=== PATIENT | female | born 2000 | race Hispanic/Latino ===

== ENCOUNTER 2024-09-04 08:54 | Emergency (ER) | payer SELFPAY ==
--- NOTE | ~2024-09-04 | US_ITS ---
EXAMINATION: US OB <= 14 weeks fetus DATE: 09/04/2024 11:31 INDICATION: Abdominal pain and vaginal spotting during first trimester TECHNIQUE: Real-time pelvic ultrasound utilizing both a transvaginal and transabdominal probe was pe rformed. The interpreting radiologist was not present for the study. COMPARISON: None. FINDINGS: The uterus measures 8.6 x 5.5 x 4.9 cm. There is an intrauterine gestational sac. A yolk sac and fet al pole are identified. The crown rump length measures 4 mm, which correlates with an estimated gesta tional age of 6 weeks and 1 days. heart motion is identified measuring 116 beats per minute (bp m) by M-mode Doppler. Small crescentic anechoic subchorionic hematoma extending 3.3 x 3.3 cm in lengt h along the periphery of the gestational sac measuring up to 6 mm in maximal thickness. The right ovary measures 2.2 x 2.1 x 2.1 cm. The left ovary measures 1.9 x 1.4 x 1.0 cm. After flow i dentified in both ovaries on color Doppler. There is no free fluid in the pelvis. IMPRESSION: 1. Single living fetus with heart rate of 116 bpm. 2. Gestational age by ultrasound of 6 weeks 1 day(s) +/- 4 day(s) with ultrasound estimated date of delivery (JACK) of 04/29/2025. Line 3. Small subchorionic hematoma. Reviewed, dictated and finalized at location B. IMPRESSION: 1. Single living fetus with heart rate of 116 bpm. 2. Gestational age by ultrasound of 6 weeks 1 day(s) +/- 4 day(s) with ultraso und estimated date of delivery (JACK) of 04/29/2025. Line 3. Small subchorionic hematoma.
[2024-09-04 09:11] VITALS: BP 140/80; PULSE 70; RESP 20; TEMP 37.1; O2SAT 100
--- NOTE | 2024-09-04 10:23 | ED_ITS ---
HPI - General Chief complaint: Vaginal Bleeding Stated complaint: vag bleed, preg Time Seen by Provider: 09/04/24 09:05 History of Present Illness HPI Narrative: Patient is a 23-year-old female who presents to the ER with concerns vaginal bleeding and abdominal pain well be 6 weeks . She reports she went to an OBGYN last week where they confirmed her but did not do an ultrasound. Patient reports for the past few days she has noticed blood on toilet paper when she wipes. She endorses abdominal pain near her umbilicus and along her right pelvis. Patient denies any recent fevers, constipation, or back pain. Related Data Allergies Allergy/AdvReac Type Severity Reaction Status Date / Time No Known Allergies Allergy Verified 09/04/24 09:19 Review of Systems 2 Review of Systems: All systems reviewed & are unremarkable except as noted in HPI and below Exam 2 Narrative: GENERAL: Well appearing, well-nourished, non-toxic, in no acute distress. HEAD: Normocephalic, atraumatic. NECK: Supple. No adenopathy, no masses. RESPIRATORY: Airway patent, respirations nonlabored. Clear to auscultation bilaterally, no rales, rhonchi, wheezing. CARDIOVASCULAR: Regular rate and rhythm without murmurs, rubs, or gallops. Peripheral pulses 2+ and equal bilaterally. ABDOMINAL: Soft, nontender, nondistended, no hepatosplenomegaly. Normoactive BS. MUSCULOSKELETAL: Moves all extremities. Strength/ROM intact without gross deformities. SKIN: Warm, dry, normal color. No rashes. NEURO: A&O X3. Speech clear. Cranial nerves II-XII intact. No ataxic movements. PSYCHIATRIC: Appropriate mood and affect. Normal interaction. Course Vital Signs Vital signs: Vital Signs Temperature 37.1 C 09/04/24 09:11 Pulse Rate 70 09/04/24 09:11 Respiratory Rate 20 09/04/24 09:11 Blood Pressure 140/80 09/04/24 09:11 Pulse Oximetry 100 09/04/24 09:11 Oxygen Delivery Room Air 09/04/24 09:11 Temperature 37.1 C 09/04/24 09:11 Pulse Rate 70 09/04/24 09:11 Respiratory Rate 20 09/04/24 09:11 Blood Pressure 140/80 09/04/24 09:11 Pulse Oximetry 100 09/04/24 09:11 Oxygen Delivery Room Air 09/04/24 09:11 MDM - OB/Uterine Contractions MDM Narrative Medical decision making narrative: Patient is a 23-year-old female who presents to the ER with concerns vaginal bleeding and abdominal pain well be 6 weeks . She reports she went to an OBGYN last week where they confirmed her but did not do an ultrasound. Patient reports for the past few days she has noticed blood on toilet paper when she wipes. She endorses abdominal pain near her umbilicus and along her right pelvis. Patient denies any recent fevers, constipation, or back pain. Labs Ordered: CBC, CMP, UA, hCG quant Imaging Ordered: Ultrasound OB less than 14 weeks Medications Ordered: 1 L normal saline IV bolus, Macrobid P.O. Results: Patient's ultrasound indicates 1. Single living fetus with heart rate of 116 bpm. 2. Gestational age by ultrasound of 6 weeks 1 day(s) +/- 4 day(s) with ultrasound estimated date of delivery (JACK) of 04/29/2025. Line 3. Small subchorionic hematoma. Her urinalysis indicates that she has a urinary tract infection. Diagnosis: Live , urinary tract infection Consults: OBGYN (outpatient-[facility]), already established. Patient Education/Shared MDM: Results shared with patient. She is strongly advised to maintain hydration status upon discharge and follow-up with her OBGYN as planned. She will be discharged home with a prescription for Macrobid. Strict return precautions provided. Patient verbalized understanding is in agreement with plan. Vital signs stable at time of discharge. All questions answered. Differential Diagnosis Differential diagnosis: Likely other (Threatened , intrauterine , ectopic , vaginal bleeding during , urinary tract infection) Lab Data Attestation: I reviewed the patient's lab results. 09/04/24 11:44 09/04/24 11:44 Labs: Lab Results 09/04/24 Range/Units 11:44 WBC 8.5 (4.5-10.0) K/mm3 RBC 4.58 (4.2-5.4) M/mm3 Hgb 14.4 (12.0-15.0) g/dL Hct 42.2 (37.0-47.0) % MCV 92.1 (80-100) fl MCH 31.4 (26-34) pg MCHC 34.1 (32-36) g/dl RDW 12.4 (11.5-14.5) % Plt Count 403 H (150-375) k/mm3 MPV 8.9 (7.4-10.4) fl Immature Gran % (Auto) 0.4 (0-0.5) % Neut % (Auto) 58.3 (45.5-73.1) % Lymph % (Auto) 36.1 (18.3-44.2) % [place] % (Auto) 3.9 (2.6-8.5) % Eos % (Auto) 0.7 (0-4.4) % Baso % (Auto) 0.6 (0.2-1.2) % Lymph # (Auto) 3.07 (0.9-3.2) K/mm3 [place] # (Auto) 0.3 (0.1-0.6) K/mm3 Eos # (Auto) 0.1 (0-0.3) K/mm3 Baso # (Auto) 0.1 (0.0-0.1) K/mm3 Abs Immat Gran (auto) 0.03 (0.00-0.031) K/mm3 Absolute Neuts (auto) 5.0 (1.3-6.7) K/mm3 Absolute Nucleated RBC 0.000 (0.0-0.012) K/mm3 Nucleated RBC % 0.0 (0.0-0.2) % PT 13.2 (11.1-14.7) Seconds INR 1.0 APTT 31.0 (22.3-36.8) Seconds Sodium 139 (137-145) mmol/L Potassium 4.1 (3.4-5.0) mmol/L Chloride 105 (98-107) mmol/L Carbon Dioxide 22 (22-30) mmol/L Anion Gap 12 (4-12) mmol/L BUN 5 L (7-17) mg/dL Creatinine 0.42 L (0.7-1.0) mg/dL Estim Creat Clear Calc 180 ml/min Estimated GFR > 60 (59 - ) Glucose 87 (65-110) mg/dL Calcium 9.2 (8.4-10.2) mg/dL Total Bilirubin 0.4 (0.2-1.3) mg/dL AST 26 (14-36) U/L ALT 26 (6-35) U/L Alkaline Phosphatase 72 (38-126) U/L Total Protein 8.0 (6.3-8.2) g/dL Albumin 4.6 (3.5-5.1) g/dL Beta HCG, Quant 72293.00 mIU/ML Urine Color Yellow (Yellow) Urine Appearance Cloudy H (Clear) Urine pH 7.0 (5.0-9.0) Ur Specific [place] 1.021 (1.001-1.035) Urine Protein Trace (Negative) mg/dL Urine Glucose (UA) Negative (Negative) mg/dL Urine Ketones Negative (Negative) mg/dL Ur Blood (Man) 2+ H (Negative) Urine Nitrate Negative (Negative) Urine Bilirubin Negative (Negative) Urine Urobilinogen 0.2 (<2.0) mg/dL Leukocyte Esterase Rfl 3+ H (Negative) GUTIERREZ/UL Urine RBC 6-10 H (0-2) /hpf Urine WBC 51-100 H (0-3) /hpf Ur Squamous Epith Cells Many H (Few) /hpf Urine Bacteria 3+ H /hpf Urine Casts 0-2 Blood Type O Positive Antibody Screen Negative Screen Not Reportable Baby's Blood Type Not Reportable Baby's MARSHA Not Reportable Doses of RhIg Required 0 Imaging Data Attestation: I personally reviewed and interpreted this imaging study as follows: Radiologist's impression: Impressions Ultrasound 09/04/24 11:32 IMPRESSION: 1. Single living fetus with heart rate of 116 bpm. 2. Gestational age by ultrasound of 6 weeks 1 day(s) +/- 4 day(s) with ultrasound estimated date of delivery (JACK) of 04/29/2025. Line 3. Small subchorionic hematoma. Discharge Plan Discharge Clinical Impression: Threatened , Urinary tract infection, Vaginal bleeding, Subchorionic hematoma in first trimester Patient Disposition: Home, Self-Care Condition: Stable Instructions: Antibiotic Form, (ED), Urinary Tract Infection in (ED) Additional Instructions: Please return to the ER with any worsening symptoms. Follow-up with your OBGYN as planned. Take all medications as prescribed, including your vitamins. Patient Language: Slovak Prescriptions: New nitrofurantoin monohyd/m-cryst [Macrobid] 100 mg capsule 100 mg PO Q12H 5 Days Qty: 10 0RF Rx Instructions: must administer with a meal/food Follow-up/Referrals: UNKNOWN,DOCTOR [Primary Care Provider] - Stand Alone Forms: Work/School Release IP Time of Disposition: 14:24
[2024-09-04] MEDS: SODIUM CHLORIDE 0.9% IV 1,000 ML 999 ML IV CONT (11:44)
[2024-09-04 11:51] LABS: Basophils Absolute Auto 0.1 K/mm3 (0.0-0.1); Basophils Percent Auto 0.6 % (0.2-1.2); Eosinophils Absolute Auto 0.1 K/mm3 (0-0.3); Eosinophils Percent Auto 0.7 % (0-4.4); Hematocrit 42.2 % (37.0-47.0); Hemoglobin 14.4 g/dL (12.0-15.0); Immature Granulocyte Absolute 0.03 K/mm3 (0.00-0.031); Immature Granulocyte Percent A 0.4 % (0-0.5); Lymphocytes Absolute Auto 3.07 K/mm3 (0.9-3.2); Lymphocytes Percent Auto 36.1 % (18.3-44.2); Mean Corpuscular HGB Conc 34.1 g/dl (32-36); Mean Corpuscular Hemoglobin 31.4 pg (26-34); Mean Corpuscular Volume 92.1 fl (80-100); Mean Platelet Volume 8.9 fl (7.4-10.4); Monocytes Absolute Auto 0.3 K/mm3 (0.1-0.6); Monocytes Percent Auto 3.9 % (2.6-8.5); Neutrophils Percent Auto 58.3 % (45.5-73.1); Platelet Count Result 403 k/mm3 (150-375); Red Blood Count 4.58 M/mm3 (4.2-5.4); Red Cell Distribution Width 12.4 % (11.5-14.5); White Blood Count 8.5 K/mm3 (4.5-10.0)
[2024-09-04 11:55] LABS: Add Urine Microscopic? YES; Appearance Urine Cloudy (Clear); Bacteria Urine 3+ /hpf; Bilirubin Urine Negative (Negative); Blood Urine 2+ (Negative); Color Urine Yellow (Yellow); Glucose Urine UA Negative (Negative); Ketones Urine Negative (Negative); Leukocyte Esterase Ur 3+ LEU/UL (Negative); Nitrate Urine Negative (Negative); Non Pathogenic Casts 0-2; Protein Urine Trace mg/dL (Negative); Specific Grav Ur 1.021 (1.001-1.035); Squamous Epithelial Cell Urine Many /hpf (Few); Urobilinogen Urine 0.2 mg/dL (<2.0); WBC Urine 51-100 /hpf (0-3)
[2024-09-04 12:11] LABS: Prothrombin Time 13.2 Seconds (11.1-14.7)
[2024-09-04 12:14] LABS: Alanine Aminotransferase 26 U/L (6-35); Albumin Level 4.6 g/dL (3.5-5.1); Alkaline Phosphatase 72 U/L (38-126); Anion Gap 12 mmol/L (4-12); Aspartate Amino Transferase 26 U/L (14-36); Bilirubin,Total 0.4 mg/dL (0.2-1.3); Blood Urea Nitrogen 5 mg/dL (7-17); Calcium 9.2 mg/dL (8.4-10.2); Carbon Dioxide 22 mmol/L (22-30); Chloride 105 mmol/L (98-107); Estimated CRCL calculation 180 ml/min; Estimated Glomerular Filt Rate > 60; Glucose 87 mg/dL (65-110); Potassium 4.1 mmol/L (3.4-5.0); Sodium 139 mmol/L (137-145)
[2024-09-04] MEDS: NITROFURANTOIN MONOHYD MACROCR 100 MG CAP PO (13:00)
[2024-09-04 14:39] VITALS: BP 123/78; PULSE 74; RESP 18; O2SAT 100
== END 2024-09-04 14:41 | disposition home or self-care (01) ==
PROVIDERS: Emergency Provider Registered Nurse
DX: O20.0 Threatened abortion (principal); O23.41 Unspecified infection of urinary tract in pregnancy, first trimester; N39.0 Urinary tract infection, site not specified; Z3A.01 Less than 8 weeks gestation of pregnancy
CPT/HCPCS: 36415; 76801; 80053; 81001; 84702; 85025; 85461; 85610; 85730; 86850; 86900; 86901; 96360; 99284; A9270; J7030

== ENCOUNTER 2024-09-19 19:17 | Emergency (ER) | payer SELFPAY ==
[2024-09-19 19:31] VITALS: BP 133/82; PULSE 110; RESP 20; TEMP 37.1; O2SAT 99
--- NOTE | 2024-09-19 20:34 | ED_ITS ---
HPI - Nausea/Vomiting/Diarrhea General Chief complaint: Nausea/Vomiting/Diarrhea <Izabela Logan MD - Last Filed: 09/19/24 22:02> Stated complaint: Bleeding- <Izabela Logan MD - Last Filed: 09/19/24 22:02> Time Seen by Provider: 09/19/24 20:01 <Izabela Logan MD - Last Filed: 09/19/24 22:02> History of Present Illness HPI Narrative: Patient is about 8 weeks , confirmed on ultrasound, over last few days she has noticed that especially after she eats, she will have nausea, vomiting, right-sided abdominal pain. This comes and goes. Also having some chills and fevers. No dysuria. <Izabela Logan MD - Last Filed: 09/19/24 22:02> Related Data Allergies/Adverse reactions: Allergies Allergy/AdvReac Type Severity Reaction Status Date / Time No Known Allergies Allergy Verified 09/19/24 19:18 <Izabela Logan MD - Last Filed: 09/19/24 22:02> Review of Systems 2 Review of Systems: All systems reviewed & are unremarkable except as noted in HPI and below <Izabela Logan MD - Last Filed: 09/19/24 22:02> Exam 2 Narrative: EXAMINATION OF ORGAN SYSTEMS/BODY AREAS: Constitutional: Vital signs per nursing GENERAL:[No acute distress, non-toxic appearing.] HEAD: Normal with no signs of head trauma. EYES: EOMI, conjunctiva normal ENT: Hearing grossly intact LUNGS: Nonlabored breathing. HEART: [Regular rate and rhythm] ABD: [Soft], [nontender to palpation], negative Casas's sign EXT: Normal range of motion SKIN: [No rashes or lesions.] NEURO: [Alert and oriented x 3. No gross focal sensory or strength deficits.] PSYCH: Normal affect <Izabela Logan MD - Last Filed: 09/19/24 22:02> Course Vital Signs Vital signs: Vital Signs Temperature 98.7 F 09/19/24 19:31 Pulse Rate 110 H 09/19/24 19:31 Respiratory Rate 20 09/19/24 19:31 Blood Pressure 133/82 09/19/24 19:31 Pulse Oximetry 99 09/19/24 19:31 Oxygen Delivery Room Air 09/19/24 19:31 Temperature 98.7 F 09/19/24 19:31 Pulse Rate 100 09/19/24 22:07 Respiratory Rate 18 09/19/24 22:07 Blood Pressure 128/87 09/19/24 22:07 Pulse Oximetry 100 09/19/24 22:07 Oxygen Delivery Room Air 09/19/24 19:31 <Izabela Logan MD - Last Filed: 09/19/24 22:02> Vital Signs Temperature 98.7 F 09/19/24 19:31 Pulse Rate 110 H 09/19/24 19:31 Respiratory Rate 20 09/19/24 19:31 Blood Pressure 133/82 09/19/24 19:31 Pulse Oximetry 99 09/19/24 19:31 Oxygen Delivery Room Air 09/19/24 19:31 Temperature 98.7 F 09/19/24 19:31 Pulse Rate 100 09/19/24 22:07 Respiratory Rate 18 09/19/24 22:07 Blood Pressure 128/87 09/19/24 22:07 Pulse Oximetry 100 09/19/24 22:07 Oxygen Delivery Room Air 09/19/24 19:31 <Brandin Huitron MD - Last Filed: 09/19/24 23:14> MDM - Nausea/Vomiting/Diarrhea MDM Narrative Medical decision making narrative: 24-year-old female at 8 weeks presents here with right-sided abdominal pain, nausea, vomiting last few days, worse after eating. Well- appearing on exam, abdomen soft nontender, negative Casas sign, afebrile here, her low concern for cholecystitis, I did consider possible gallstones. Bedside ultrasound shows intrauterine with normal heart rate, on my bedside ultrasound gallbladder does not appear thickened, no pericholecystic fluid, there does appear to be some sludge. Workup will be obtained, UA showing consistent WBCs so I will give her dose of ceftriaxone here. Signed out to oncoming ER physician pending remainder of workup. <Izabela Logan MD - Last Filed: 09/19/24 22:02> 24-year-old female at 8 weeks presents here with right-sided abdominal pain, nausea, vomiting last few days, worse after eating. Well- appearing on exam, abdomen soft nontender, negative Casas sign, afebrile here, her low concern for cholecystitis, I did consider possible gallstones. Bedside ultrasound shows intrauterine with normal heart rate, on my bedside ultrasound gallbladder does not appear thickened, no pericholecystic fluid, there does appear to be some sludge. Workup will be obtained, UA showing consistent WBCs so I will give her dose of ceftriaxone here. Signed out to oncoming ER physician pending remainder of workup. Elana: Patient was signed out to me pending the remainder of the workup. Blood work was obtained and noted to be within normal limits. Patient was reassessed at this time, states that her nausea/vomiting has significantly improved since the medication. Blood work and urinalysis results were reviewed with the patient. She was informed that she does have urinary tract infection and will need to be placed on an oral antibiotic which will be sent to her pharmacy to take as prescribed and patient is in agreement. Patient was also informed that I will be sending some nausea medication to use as needed for nausea/vomiting, Zofran to her pharmacy. She was also informed that she can use the [id number] medication Unisome which works for hyperemesis. Patient was instructed to follow-up with her OBGYN within the next 3-5 days and return to the emergency department if any new or worsening symptoms develop. She was discharged home in stable condition. Patient is Palauan-speaking and Palauan interpretation services were used. <Brandin Huitron MD - Last Filed: 09/19/24 23:14> Lab Data Result diagrams: 09/19/24 21:49 09/19/24 21:49 <Izabela Logan MD - Last Filed: 09/19/24 22:02> Labs: Lab Results 09/19/24 09/19/24 09/19/24 Range/Units 21:27 21:36 21:49 WBC 11.1 H (4.5-10.0) K/mm3 RBC 4.20 (4.2-5.4) M/mm3 Hgb 13.1 (12.0-15.0) g/dL Hct 39.1 (37.0-47.0) % MCV 93.1 (80-100) fl MCH 31.2 (26-34) pg MCHC 33.5 (32-36) g/dl RDW 12.1 (11.5-14.5) % Plt Count 402 H (150-375) k/mm3 MPV 8.9 (7.4-10.4) fl Immature Gran % (Auto) 0.4 (0-0.5) % Neut % (Auto) 62.5 (45.5-73.1) % Lymph % (Auto) 29.6 (18.3-44.2) % [place] % (Auto) 5.7 (2.6-8.5) % Eos % (Auto) 1.3 (0-4.4) % Baso % (Auto) 0.5 (0.2-1.2) % Lymph # (Auto) 3.27 H (0.9-3.2) K/mm3 [place] # (Auto) 0.6 (0.1-0.6) K/mm3 Eos # (Auto) 0.1 (0-0.3) K/mm3 Baso # (Auto) 0.1 (0.0-0.1) K/mm3 Abs Immat Gran (auto) 0.04 H (0.00-0.031) K/mm3 Absolute Neuts (auto) 6.9 H (1.3-6.7) K/mm3 Absolute Nucleated RBC 0.000 (0.0-0.012) K/mm3 Nucleated RBC % 0.0 (0.0-0.2) % Sodium 137 (137-145) mmol/L Potassium 3.9 (3.4-5.0) mmol/L Chloride 106 (98-107) mmol/L Carbon Dioxide 22 (22-30) mmol/L Anion Gap 9 (4-12) mmol/L BUN 3 L (7-17) mg/dL Creatinine 0.37 L (0.7-1.0) mg/dL Estim Creat Clear Calc 206 ml/min Estimated GFR > 60 (59 - ) Glucose 89 (65-110) mg/dL Calcium 9.0 (8.4-10.2) mg/dL Total Bilirubin 0.3 (0.2-1.3) mg/dL AST 37 H (14-36) U/L ALT 22 (6-35) U/L Alkaline Phosphatase 71 (38-126) U/L Total Protein 7.0 (6.3-8.2) g/dL Albumin 4.4 (3.5-5.1) g/dL Beta HCG, Quant 90173.00 mIU/ML Urine Color Yellow (Yellow) Urine Appearance Clear (Clear) Urine pH 7.5 (5.0-9.0) Ur Specific [place] 1.005 (1.001-1.035) Urine Protein Negative (Negative) mg/dL Urine Glucose (UA) Negative (Negative) mg/dL Urine Ketones Negative (Negative) mg/dL Ur Blood (Man) Negative (Negative) Urine Nitrate Negative (Negative) Urine Bilirubin Negative (Negative) Urine Urobilinogen 0.2 (<2.0) mg/dL Add Ur Microanalysis Reviewed Leukocyte Esterase Rfl 2+ H (Negative) GUTIERREZ/UL Urine RBC 6-10 H (0-2) /hpf Urine WBC 21-50 H (0-3) /hpf Ur Squamous Epith Cells Few (Few) /hpf Urine Bacteria Rare /hpf Urine Casts 0-2 POC Urine HCG, Qual Positive (Negative) Influenza A (RT-PCR) Negative (Negative) Influenza B (RT-PCR) Negative (Negative) RSV (RT-PCR) Negative (Negative) SARS-CoV-2 RNA (RT-PCR) Negative (Negative) <Izabela Logan MD - Last Filed: 09/19/24 22:02> Lab Results 09/19/24 09/19/24 09/19/24 Range/Units 21:27 21:36 21:49 WBC 11.1 H (4.5-10.0) K/mm3 RBC 4.20 (4.2-5.4) M/mm3 Hgb 13.1 (12.0-15.0) g/dL Hct 39.1 (37.0-47.0) % MCV 93.1 (80-100) fl MCH 31.2 (26-34) pg MCHC 33.5 (32-36) g/dl RDW 12.1 (11.5-14.5) % Plt Count 402 H (150-375) k/mm3 MPV 8.9 (7.4-10.4) fl Immature Gran % (Auto) 0.4 (0-0.5) % Neut % (Auto) 62.5 (45.5-73.1) % Lymph % (Auto) 29.6 (18.3-44.2) % [place] % (Auto) 5.7 (2.6-8.5) % Eos % (Auto) 1.3 (0-4.4) % Baso % (Auto) 0.5 (0.2-1.2) % Lymph # (Auto) 3.27 H (0.9-3.2) K/mm3 [place] # (Auto) 0.6 (0.1-0.6) K/mm3 Eos # (Auto) 0.1 (0-0.3) K/mm3 Baso # (Auto) 0.1 (0.0-0.1) K/mm3 Abs Immat Gran (auto) 0.04 H (0.00-0.031) K/mm3 Absolute Neuts (auto) 6.9 H (1.3-6.7) K/mm3 Absolute Nucleated RBC 0.000 (0.0-0.012) K/mm3 Nucleated RBC % 0.0 (0.0-0.2) % Sodium 137 (137-145) mmol/L Potassium 3.9 (3.4-5.0) mmol/L Chloride 106 (98-107) mmol/L Carbon Dioxide 22 (22-30) mmol/L Anion Gap 9 (4-12) mmol/L BUN 3 L (7-17) mg/dL Creatinine 0.37 L (0.7-1.0) mg/dL Estim Creat Clear Calc 206 ml/min Estimated GFR > 60 (59 - ) Glucose 89 (65-110) mg/dL Calcium 9.0 (8.4-10.2) mg/dL Total Bilirubin 0.3 (0.2-1.3) mg/dL AST 37 H (14-36) U/L ALT 22 (6-35) U/L Alkaline Phosphatase 71 (38-126) U/L Total Protein 7.0 (6.3-8.2) g/dL Albumin 4.4 (3.5-5.1) g/dL Beta HCG, Quant 80034.00 mIU/ML Urine Color Yellow (Yellow) Urine Appearance Clear (Clear) Urine pH 7.5 (5.0-9.0) Ur Specific [place] 1.005 (1.001-1.035) Urine Protein Negative (Negative) mg/dL Urine Glucose (UA) Negative (Negative) mg/dL Urine Ketones Negative (Negative) mg/dL Ur Blood (Man) Negative (Negative) Urine Nitrate Negative (Negative) Urine Bilirubin Negative (Negative) Urine Urobilinogen 0.2 (<2.0) mg/dL Add Ur Microanalysis Reviewed Leukocyte Esterase Rfl 2+ H (Negative) GUTIERREZ/UL Urine RBC 6-10 H (0-2) /hpf Urine WBC 21-50 H (0-3) /hpf Ur Squamous Epith Cells Few (Few) /hpf Urine Bacteria Rare /hpf Urine Casts 0-2 POC Urine HCG, Qual Positive (Negative) Influenza A (RT-PCR) Negative (Negative) Influenza B (RT-PCR) Negative (Negative) RSV (RT-PCR) Negative (Negative) SARS-CoV-2 RNA (RT-PCR) Negative (Negative) <Brandin Huitron MD - Last Filed: 09/19/24 23:14> Discharge Plan Discharge Clinical Impression: Abdominal pain, RUQ, Nausea & vomiting, UTI (urinary tract infection) <Izabela Logan MD - Last Filed: 09/19/24 22:02> Patient Disposition: Home <Izabela Logan MD - Last Filed: 09/19/24 22:02> Condition: Stable <Izabela Logan MD - Last Filed: 09/19/24 22:02> Instructions: Antibiotic Form, Urinary Tract Infection in (ED) <Izabela Logan MD - Last Filed: 09/19/24 22:02> Additional Instructions: Please follow-up with your OBGYN within the next 3-5 days. Take the prescribed antibiotic as instructed for urinary tract infection. Return to the emergency department if any new or worsening symptoms develop. Use the prescribed nausea medication as needed for nausea/vomiting. You can also use a medication called Unisome which you can obtain over the counter at any pharmacy to help with your nausea/vomiting. <Izabela Logan MD - Last Filed: 09/19/24 22:02> Patient Language: Palauan <Izabela Logan MD - Last Filed: 09/19/24 22:02> Prescriptions: New ondansetron 4 mg tablet,disintegrating 4 mg PO Q8H PRN (Reason: nausea and vomiting) Qty: 14 0RF Discontinued nitrofurantoin monohyd/m-cryst [Macrobid] 100 mg capsule 100 mg PO Q12H 5 Days Qty: 10 0RF Rx Instructions: must administer with a meal/food <Izabela Logan MD - Last Filed: 09/19/24 22:02> Follow-up/Referrals: UNKNOWN,DOCTOR [Primary Care Provider] - 3 Days <Izabela Logan MD - Last Filed: 09/19/24 22:02> Time of Disposition: 23:12 <Izabela Logan MD - Last Filed: 09/19/24 22:02> 23:12 <Brandin Huitron MD - Last Filed: 09/19/24 23:14>
[2024-09-19 21:38] LABS: BEDSIDEPREGUCG Positive (Negative)
[2024-09-19 21:48] LABS: Add Urine Microscopic? YES; Appearance Urine Clear (Clear); Bacteria Urine Rare /hpf; Bilirubin Urine Negative (Negative); Blood Urine Negative (Negative); Color Urine Yellow (Yellow); Glucose Urine UA Negative (Negative); Ketones Urine Negative (Negative); Leukocyte Esterase Ur 2+ LEU/UL (Negative); Need Manual Microscopic Reviewed; Nitrate Urine Negative (Negative); Non Pathogenic Casts 0-2; Protein Urine Negative (Negative); Specific Grav Ur 1.005 (1.001-1.035); Squamous Epithelial Cell Urine Few /hpf (Few); Urobilinogen Urine 0.2 mg/dL (<2.0); WBC Urine 21-50 /hpf (0-3); pH Urine 7.5 (5.0-9.0)
[2024-09-19] MEDS: SODIUM CHLORIDE 0.9% IV 1,000 ML 999 ML IV CONT (21:50)
[2024-09-19 21:57] LABS: Basophils Absolute Auto 0.1 K/mm3 (0.0-0.1); Basophils Percent Auto 0.5 % (0.2-1.2); Eosinophils Absolute Auto 0.1 K/mm3 (0-0.3); Eosinophils Percent Auto 1.3 % (0-4.4); Hematocrit 39.1 % (37.0-47.0); Hemoglobin 13.1 g/dL (12.0-15.0); Immature Granulocyte Absolute 0.04 K/mm3 (0.00-0.031); Immature Granulocyte Percent A 0.4 % (0-0.5); Lymphocytes Absolute Auto 3.27 K/mm3 (0.9-3.2); Lymphocytes Percent Auto 29.6 % (18.3-44.2); Mean Corpuscular HGB Conc 33.5 g/dl (32-36); Mean Corpuscular Hemoglobin 31.2 pg (26-34); Mean Corpuscular Volume 93.1 fl (80-100); Mean Platelet Volume 8.9 fl (7.4-10.4); Monocytes Absolute Auto 0.6 K/mm3 (0.1-0.6); Monocytes Percent Auto 5.7 % (2.6-8.5); Neutrophils Absolute Auto 6.9 K/mm3 (1.3-6.7); Neutrophils Percent Auto 62.5 % (45.5-73.1); Platelet Count Result 402 k/mm3 (150-375); Red Cell Distribution Width 12.1 % (11.5-14.5); White Blood Count 11.1 K/mm3 (4.5-10.0)
[2024-09-19] MEDS: ACETAMINOPHEN 500 MG TABLET 1000 MG PO (22:00)
[2024-09-19] MEDS: diphenhydrAMINE HCl INJ 50 MG/ML VIAL 25 MG IV PUSH (22:01)
[2024-09-19] MEDS: METOCLOPRAMIDE HCL INJ 10 MG/2 ML VIAL IV PUSH (22:01)
[2024-09-19 22:07] VITALS: BP 128/87; PULSE 100; RESP 18; O2SAT 100
[2024-09-19 22:11] LABS: Alanine Aminotransferase 22 U/L (6-35); Albumin Level 4.4 g/dL (3.5-5.1); Alkaline Phosphatase 71 U/L (38-126); Anion Gap 9 mmol/L (4-12); Aspartate Amino Transferase 37 U/L (14-36); Bilirubin,Total 0.3 mg/dL (0.2-1.3); Blood Urea Nitrogen 3 mg/dL (7-17); Carbon Dioxide 22 mmol/L (22-30); Chloride 106 mmol/L (98-107); Estimated CRCL calculation 206 ml/min; Estimated Glomerular Filt Rate > 60; Glucose 89 mg/dL (65-110); Potassium 3.9 mmol/L (3.4-5.0); Sodium 137 mmol/L (137-145)
[2024-09-19 22:12] LABS: Influenza A QL RT-PCR Negative (Negative); Influenza B QL RT-PCR Negative (Negative); RSV RNA, RT-PCR Negative (Negative); SARS-CoV-2 RNA PCR Negative (Negative)
== END 2024-09-19 23:50 | disposition home or self-care (01) ==
PROVIDERS: Emergency Medicine; Emergency Provider Emergency Medicine
DX: O21.0 Mild hyperemesis gravidarum (principal); Z3A.08 8 weeks gestation of pregnancy; O23.41 Unspecified infection of urinary tract in pregnancy, first trimester; N39.0 Urinary tract infection, site not specified; R10.11 Right upper quadrant pain; Z20.822 Contact with and (suspected) exposure to COVID-19
CPT/HCPCS: 36415; 80053; 81001; 81025; 84702; 85025; 87086; 87637; 96361; 96365; 96375; 99284; A9270; J0696; J1200; J2765; J7030

== ENCOUNTER 2025-01-11 14:12 | Observation (INO) | payer OTHER, SELFPAY ==
--- NOTE | ~2025-01-11 | US_ITS ---
US OB limited 01/11/2025 15:37 Indication: Vaginal bleeding Procedure: Limited obstetrical ultrasound Comparison: No prior studies for comparison. Findings: There is a single living intrauterine in vertex presentation. heart rate 14 8 BPM. Placenta is anterior without previa. Cervical length is 3.9 cm. Impression: 1: Single living intrauterine in vertex presentation. Reviewed, dictated and finalized at location A. Impression: 1: Single living intrauterine in vertex presentation.
[2025-01-11 14:46] VITALS: BP 106/89; PULSE 109
[2025-01-11 15:01] VITALS: BP 111/71; PULSE 100
[2025-01-11 15:21] LABS: Hematocrit 35.2 % (37.0-47.0); Hemoglobin 11.9 g/dL (12.0-15.0); Mean Corpuscular HGB Conc 33.8 g/dl (32-36); Mean Corpuscular Hemoglobin 31.3 pg (26-34); Mean Corpuscular Volume 92.6 fl (80-100); Platelet Count Result 337 k/mm3 (150-375); Red Blood Count 3.80 M/mm3 (4.2-5.4); White Blood Count 9.9 K/mm3 (4.5-10.0)
[2025-01-11 15:48] VITALS: BP 111/71; PULSE 100; RESP 16
--- NOTE | 2025-01-11 15:48 | OBADM ---
This patient, Dalia Morales, admitted to the OB room Labor/Delivery/Recovery 118 for observation. Patient/family oriented to hospital policies and general routines including ID bracelet, bed and alarms, visiting hours, pain management, procedures, bathroom and other care routines, personal items, smoking policy, room service/diet, and visiting hours. Patient/Family are encouraged to report perceived risks to care and to ask questions if they do not understand what they are told or what they should do.
--- NOTE | 2025-01-11 15:56 | PC.NURSE ---
Called Dr. Nguyen (environmental health and safety manager OB) and reviewed US results. Discussed cervical length 3.9 cm, baby in vertex position, anterior placenta without previa, previous US in august when pt. was 6 weeks gestation of small subchorionic hematoma, and baby had reassuring FHTs on strip. Order received for pt. to dc home, and to f/u with primary OB tomorrow.
--- NOTE | 2025-01-11 15:57 | PC.NURSE ---
Report given and care assumed by Leida Figueredo RN at [phone]
--- NOTE | 2025-01-11 16:00 | PC.NURSE ---
Discussed with pt. via vacuum cleaner operator results of US and that pt. is ok to dc home. Given PTL handout and told to come back if experiencing any PTL symptoms and to see her OB tomorrow to f/u. Pt. verbalized understanding.
[2025-01-11 16:17] VITALS: BP 111/71; PULSE 100
--- NOTE | 2025-01-19 12:19 | PM.OBTRLD ---
OB - Triage/Final Diagnosis Visit Information Comments/Additional reasons for admission: I have assessed the risk for this patient, Dalia Morales, and determined that she would benefit from observation care. Evaluation Laboratory results: Laboratory Tests 01/11/25 15:14 WBC 9.9 RBC 3.80 L Hgb 11.9 L Hct 35.2 L MCV 92.6 MCH 31.3 MCHC 33.8 RDW 13.2 Plt Count 337 MPV 9.0 Blood Type O Positive Antibody Screen Negative Final Diagnosis (1) Spotting affecting : Code(s): O26.859 - Spotting complicating , unspecified trimester Status: Acute
== END 2025-01-11 16:05 | disposition home or self-care (01) ==
PROVIDERS: Admitting Provider Obstetrics & Gynecology; Visit Provider Obstetrics & Gynecology
DX: O26.852 Spotting complicating pregnancy, second trimester (principal); Z3A.24 24 weeks gestation of pregnancy
CPT/HCPCS: 36415; 59025; 76815; 85027; 86850; 86900; 86901; G0378; G0379